=== PATIENT | female | born 1990 | race African-American/Black ===

== ENCOUNTER 2022-03-14 18:51 | Emergency (ER) | payer OTHER ==
[~2022-03-14] VITALS: Ht 152.4 cm; Wt 84.1 kg
[2022-03-14 19:30] VITALS: BP 125/78
[2022-03-14] MEDS ORDERED: ALBU8.5H8 IH (19:37)
== END 2022-03-14 21:14 | disposition left against medical advice (07) ==
LOC: EMS 18:58
DX: Z53.21 Procedure and treatment not carried out due to patient leaving prior to being seen by health care provider (principal)

== ENCOUNTER 2022-12-21 02:12 | Emergency (ER) | payer OTHER ==
[~2022-12-21] VITALS: Ht 170.2 cm; Wt 85.0 kg
[~2022-12-21 02:12] MED LIST: ALBU8.5H8 IH
[2022-12-21 02:17] VITALS: BP 146/84
[2022-12-21] MEDS ORDERED: HYDROGEN PEROXIDE 118 ML SOLUTION TP ONE (03:30)
[2022-12-21] MEDS ORDERED: IBUPROFEN 600 MG TABLET PO ONE (03:30)
[2022-12-21] MEDS ORDERED: ACETAMINOPHEN/CODEINE 300-30 MG TABLET PO ONE (03:30)
[2022-12-21] MEDS ORDERED: BACITRACIN 0.9 GM PACKET OINTMENT TP ONE (03:30)
[2022-12-21] MEDS ORDERED: PERTUSS(ACELL),DIPH,TET VAC/PF 0.5 ML SYRINGE IM. ONE (03:30)
[2022-12-21] MEDS ORDERED: IBUP-1554 PO (04:25)
[2022-12-21] MEDS ORDERED: BACI28OI9 TP (04:25)
== END 2022-12-21 04:52 | disposition home or self-care (01) ==
LOC: EMS 02:13
DX: S80.812A Abrasion, left lower leg, initial encounter (principal); S20.412A Abrasion of left back wall of thorax, initial encounter; S93.401A Sprain of unspecified ligament of right ankle, initial encounter; J45.909 Unspecified asthma, uncomplicated; F17.210 Nicotine dependence, cigarettes, uncomplicated; F12.90 Cannabis use, unspecified, uncomplicated; Y93.39 Activity, other involving climbing, rappelling and jumping off; Y93.89 Activity, other specified; Y92.89 Other specified places as the place of occurrence of the external cause; Y99.8 Other external cause status
CPT/HCPCS: 90471; 90715; 99284